=== PATIENT | female | born 1975 | race Two or more races ===

== ENCOUNTER 2018-03-11 16:39 | Emergency (ER) | payer MEDICAID ==
[~2018-03-11] VITALS: Ht 157.5 cm; Wt 60.8 kg
--- NOTE | 2018-03-11 16:40 | NUR ---
PATIENT TO ED CC/O MIGRAINE X 3 DAYS. VSS. NO TRAUMA
[2018-03-11] MEDS ORDERED: KETOROLAC TROMETHAMINE INJ 30 MG/ML VIAL IV ONE (17:30)
[2018-03-11] MEDS ORDERED: KETOROLAC TROMETHAMINE INJ 30 MG/ML VIAL ONE (17:30)
[2018-03-11] MEDS ORDERED: DEXAMETHASONE SOD PHOSPHATE 10 MG/ML VIAL ONE (17:30)
[2018-03-11] MEDS ORDERED: PROCHLORPERAZINE EDISYLATE 10 MG/2 ML VIAL IV ONE (17:30)
[2018-03-11] MEDS ORDERED: DEXAMETHASONE SOD PHOSPHATE 10 MG/ML VIAL IV ONE (17:30)
[2018-03-11] MEDS ORDERED: PROCHLORPERAZINE EDISYLATE 10 MG/2 ML VIAL ONE (17:30)
[2018-03-11] MEDS ORDERED: diphenhydrAMINE HCL 50 MG/ML VIAL IV ONE (17:30)
[2018-03-11] MEDS ORDERED: IV NS 0.9% 1,000 ML BAG IV ONE (17:30)
[2018-03-11] MEDS ORDERED: diphenhydrAMINE HCL 50 MG/ML VIAL ONE (17:30)
--- NOTE | 2018-03-11 19:00 | NUR ---
Patient discharged to home in stable condition. Written and verbal after care instructions given. Patient verbalizes understanding of instruction.
[2018-03-11 19:01] VITALS: BP 120/75
== END 2018-03-11 19:02 | disposition home or self-care (01) ==
LOC: ER 16:42
DX: G43.909 Migraine, unspecified, not intractable, without status migrainosus (principal)
CPT/HCPCS: 96374; 96375; 99284; A4606; J0780; J1100; J1200; J1885; J7030; Z7610

== ENCOUNTER 2020-08-25 21:41 | Emergency (ER) | payer MEDICAID ==
[~2020-08-25] VITALS: Ht 154.9 cm; Wt 59.9 kg
--- NOTE | 2020-08-25 22:03 | NUR ---
PT AAOX4. BIBFAMILY C/O L SIDED HEADACHE RADIATING TO L SIDE OF NECK SINE 5PM. +UNABLE TO FEEL LIPS. PT PLACED IN BED 3 ON STONE LAYER AND PULSE OX. NO NEURO DEFICIT, PERRLA. PT ABLE TO MOVE ALL EXT. PER SON, PT HAS MIGRAINES OFTEN BUT WAS TOLD TO COME TO THE ED BY FAMILY TODAY.
[2020-08-25] MEDS ORDERED: diphenhydrAMINE HCL 50 MG/ML VIAL ONE (22:11)
[2020-08-25] MEDS ORDERED: KETOROLAC TROMETHAMINE 15 MG/ML VIAL ONE (22:12)
[2020-08-25] MEDS ORDERED: METOCLOPRAMIDE HCL 10 MG/2 ML VIAL ONE (22:12)
--- NOTE | 2020-08-25 22:28 | NUR ---
URINE COLLECTED, SENT TO LAB.
[2020-08-25] MEDS ORDERED: METOCLOPRAMIDE HCL 10 MG/2 ML VIAL IV ONE (22:30)
[2020-08-25] MEDS ORDERED: KETOROLAC TROMETHAMINE INJ 30 MG/ML VIAL IV ONE (22:30)
[2020-08-25] MEDS ORDERED: diphenhydrAMINE HCL 50 MG/ML VIAL IV ONE (22:30)
[2020-08-25] MEDS ORDERED: IV NS 0.9% 1,000 ML IV ONE (22:30)
--- NOTE | 2020-08-25 22:53 | NUR ---
called lab for follow up about urine
--- NOTE | 2020-08-25 23:15 | NUR ---
pt resting with eyes closed. easily arousable
--- NOTE | 2020-08-25 23:23 | NUR ---
xray at bedside
--- NOTE | 2020-08-25 23:33 | NUR ---
RETURNED FROM CT
[2020-08-26 00:16] VITALS: BP 110/68
--- NOTE | 2020-08-26 00:16 | NUR ---
Patient discharged to home in stable condition. Written and verbal after care instructions given. Patient verbalizes understanding of instruction. IV removed. Catheter intact and site benign. Pressure and 4x4 applied to site. No bleeding noted. Pt ambulatory with a steady gait. Son here to pick her up to go home
== END 2020-08-26 00:16 | disposition home or self-care (01) ==
LOC: ER 21:46
DX: G43.909 Migraine, unspecified, not intractable, without status migrainosus (principal); I10 Essential (primary) hypertension
CPT/HCPCS: 70450; 84703; 96361; 96374; 96375; 99285; J1200; J1885; J2765

== ENCOUNTER 2023-01-30 12:10 | Emergency (ER) | payer SELFPAY ==
[~2023-01-30] VITALS: Ht 157.5 cm; Wt 60.3 kg
[2023-01-30] MEDS ORDERED: IV NS 0.9% 1,000 ML BAG IV ONE (12:30)
[2023-01-30] MEDS ORDERED: METOCLOPRAMIDE HCL 10 MG/2 ML VIAL IV ONE (12:30)
[2023-01-30] MEDS ORDERED: diphenhydrAMINE HCL 50 MG/ML VIAL IV ONE (12:30)
[2023-01-30] MEDS ORDERED: IOHEXOL-350 100 ML VIAL IV ONE (12:50)
[2023-01-30] MEDS ORDERED: IV NS 0.9% 250 ML IV ONE (12:51)
[2023-01-30 13:02] LABS: BASOPHILS # (AUTO) 0.1 K/uL (0.0-0.2); BASOPHILS % (AUTO) 0.8 % (0.0-2.0); EOSINOPHILS # (AUTO) 0.3 K/uL (0.0-0.7); EOSINOPHILS % (AUTO) 3.7 % (0.0-6.0); HEMATOCRIT 40 % (33-45); HEMOGLOBIN 13.9 g/dL (11.5-14.8); MEAN CORPUSCULAR HEMOGLOBIN 32 PG (26.0-33.0); MEAN CORPUSCULAR HGB CONC 34 g/dl (31.0-36.0); MEAN CORPUSCULAR VOLUME 92 fL (82-100); MONOCYTES # (AUTO) 0.6 K/uL (0.1-1.30); MONOCYTES % (AUTO) 8.6 % (2.0-12.0); NEUTROPHILS # (AUTO) 3.2 K/uL (1.8-8.9); NEUTROPHILS % (AUTO) 44.9 % (43.0-81.0); PLATELET COUNT (AUTO) 352 K/uL (150-450); RED CELL DISTRIBUTION WIDTH 12.9 % (11.5-15.0); WHITE BLOOD COUNT (AUTO) 7.1 K/uL (4.3-11.0)
[2023-01-30 13:10] LABS: CALCIUM, SERUM 10.5 mg/dL (8.5-10.1); CREATININE 0.6 mg/dL (0.6-1.3); POTASSIUM 3.4 mmol/L (3.5-5.1)
[2023-01-30] MEDS ORDERED: diphenhydrAMINE HCL 50 MG/ML VIAL ONE (13:18)
[2023-01-30] MEDS ORDERED: METOCLOPRAMIDE HCL 10 MG/2 ML VIAL ONE (13:18)
[2023-01-30] MEDS ORDERED: IBUP-1955 PO (14:24)
[2023-01-30] MEDS ORDERED: KETOROLAC TROMETHAMINE INJ 30 MG/ML VIAL IV ONE (14:30)
[2023-01-30] MEDS ORDERED: KETOROLAC TROMETHAMINE 15 MG/ML VIAL ONE (14:33)
[2023-01-30 14:44] VITALS: BP 132/78; TEMP 98.2; O2SAT 100
== END 2023-01-30 14:45 | disposition home or self-care (01) ==
LOC: ER 12:14
DX: G43.909 Migraine, unspecified, not intractable, without status migrainosus (principal); E87.6 Hypokalemia; I10 Essential (primary) hypertension; Z60.2 Problems related to living alone
CPT/HCPCS: 99285; 70498; 96374; 96375; 96361; 93005; 70496; 85025; 80048; 36415; 82962; J1200; J2765; J7030; J7050; Q9967; J1885